=== PATIENT | male | born 1985 | race Caucasian/White ===

== ENCOUNTER → 2019-08-31 10:01 | Outpatient (BNVA) | payer MEDICARE, SELFPAY | PROVIDERS: Family Provider Internal Medicine; PCP Internal Medicine; Visit Provider Internal Medicine Rheumatology | DX: M45.8 Ankylosing spondylitis sacral and sacrococcygeal region (principal); M45.2 Ankylosing spondylitis of cervical region; I10 Essential (primary) hypertension; B02.29 Other postherpetic nervous system involvement; M79.2 Neuralgia and neuritis, unspecified; Z11.1 Encounter for screening for respiratory tuberculosis | CPT/HCPCS: 36415; 80053; 85007; 85027; 85651; 86141; 99214 ==

== ENCOUNTER → 2020-01-18 14:53 | Outpatient (BNVA) | payer MEDICARE, SELFPAY | PROVIDERS: Family Provider Internal Medicine; PCP Internal Medicine; Visit Provider Internal Medicine Rheumatology | DX: Z79.899 Other long term (current) drug therapy (principal) | CPT/HCPCS: 36415; 80076; 82565; 85025; 85651; 86140; 86480 ==

== ENCOUNTER → 2020-01-25 14:51 | Outpatient (BNVA) | payer MEDICARE, SELFPAY | PROVIDERS: Family Provider Internal Medicine; PCP Internal Medicine; Visit Provider Internal Medicine Rheumatology | DX: M45.2 Ankylosing spondylitis of cervical region (principal); M45.8 Ankylosing spondylitis sacral and sacrococcygeal region; Z79.899 Other long term (current) drug therapy; M80.88XD Other osteoporosis with current pathological fracture, vertebra(e), subsequent encounter for fracture with routine healing; L30.9 Dermatitis, unspecified | CPT/HCPCS: 99214 ==

== ENCOUNTER → 2020-05-02 09:06 | Outpatient (BNVA) | payer MEDICARE, SELFPAY | PROVIDERS: Family Provider Internal Medicine; PCP Internal Medicine; Visit Provider Internal Medicine Rheumatology | DX: Z79.899 Other long term (current) drug therapy (principal) | CPT/HCPCS: 36415; 80076; 82565; 85025; 85651; 86140 ==

== ENCOUNTER → 2020-05-07 14:55 | Outpatient (BNVA) | payer MEDICARE, SELFPAY | PROVIDERS: Family Provider Internal Medicine; PCP Internal Medicine; Visit Provider Internal Medicine Rheumatology | DX: M45.8 Ankylosing spondylitis sacral and sacrococcygeal region (principal); M45.2 Ankylosing spondylitis of cervical region; M80.88XD Other osteoporosis with current pathological fracture, vertebra(e), subsequent encounter for fracture with routine healing; Z79.899 Other long term (current) drug therapy; L30.9 Dermatitis, unspecified; Z79.1 Long term (current) use of non-steroidal anti-inflammatories (NSAID) | CPT/HCPCS: 99214 ==

== ENCOUNTER 2020-08-27 03:43 | Emergency (ER) | payer MEDICARE, SELFPAY ==
[2020-08-27 03:50] VITALS: BP 149/106; PULSE 87; RESP 17; TEMP 36.1; O2SAT 96; BMI 26.9
--- NOTE | 2020-08-27 04:18 | CTR_ITS ---
PROCEDURE INFORMATION: Exam: CT Head Without Contrast Exam date and time: 08/27/2020 4:24 AM Age: 35 years old Clinical indication: Dizziness; Additional info: Dizzy TECHNIQUE: Imaging protocol: Computed tomography of the head without contrast. Radiation optimization: All CT scans at this facility use at least one of these dose optimization techniques: automated exposure control; mA and/or kV adjustment per patient size (includes targeted exams where dose is matched to clinical indication); or iterative reconstruction. COMPARISON: CT head wo con* [id number] 07/19/2018 5:19 AM RADIATION DOSE METRICS: Total DLP (mGy-cm): 873.63 FINDINGS: Brain: Normal. No hemorrhage. Unremarkable white matter. No mass effect. Cerebral ventricles: No ventriculomegaly. Bones/joints: Unremarkable. No acute fracture. Paranasal sinuses: Visualized sinuses are unremarkable. No fluid levels. Mastoid air cells: Visualized mastoid air cells are well aerated. Soft tissues: Unremarkable. CT/CT head wo con* [id number] IMPRESSION: No acute intracranial abnormality. Radiation Dose CTDIVOL = (mGy): DLP = 873.63 (mGy-cm)
--- NOTE | 2020-08-27 04:18 | CTR_ITS ---
PROCEDURE INFORMATION: Exam: CT Cervical Spine Without Contrast Exam date and time: 08/27/2020 4:24 AM Age: 35 years old Clinical indication: Other: Dizzy; Additional info: Dizzy, HX of as TECHNIQUE: Imaging protocol: Computed tomography images of the cervical spine without contrast. Radiation optimization: All CT scans at this facility use at least one of these dose optimization techniques: automated exposure control; mA and/or kV adjustment per patient size (includes targeted exams where dose is matched to clinical indication); or iterative reconstruction. COMPARISON: CR XR cervical spine 4-5V [id number] 08/08/2020 12:50 PM RADIATION DOSE METRICS: Total DLP (mGy-cm): 692.1 FINDINGS: Bones/joints: No acute fracture. Normal alignment. Discs/Spinal canal/Neural foramina: There is partial osseous fusion of the C2, C3 and C4 bodies and posterior elements as well as the C5 and C6 bodies and posterior elements. Lungs: Lung apices are normal. Soft tissues: Unremarkable. CT/CT cervical spin wo con* [id number] IMPRESSION: No acute findings. Radiation Dose CTDIVOL = (mGy): DLP = 692.1 (mGy-cm)
--- NOTE | 2020-08-27 04:22 | ED_ITS ---
HPI - Dizziness General: Chief Complaint: Dizziness Stated Complaint: dizziness Time Seen by Provider: 08/27/20 03:58 History of Present Illness: HPI Narrative: 35-year-old male with history of ankylosing spondylitis. He presents with dizziness that started about 3 weeks ago. He says is progressively gotten worse. He has had mild hearing loss at one point, but feels like he is hearing okay now. He has had tinnitus or roaring in his ear at times but feels improved at this moment. He has seen his PCP as well as an ENT surgeon for this. He was first treated for a sinus infection with amoxicillin for 10 days and felt mildly improved transiently, but when symptoms return he was referred to ENT surgery. He was placed on prednisone at that point. He has been on this for 3 days, and notes that his symptoms have seemed to worsen is supposed to improve. This morning, he awoke with 3 different times with intense vertiginous symptoms, with a pulling sensation to the right. He has had some paresthesias bilaterally on and off. He denies significant headaches. MD elicited complaint: dizziness, vertigo and disequilibrium Pertinent past history: other Onset (ago): week(s) Timing: gradual onset Severity: moderate Description: sense of movement, room spinning and ongoing Context: other History of similar symptoms: No Exacerbating factors: movement/ambulation and change in body position Relieving factors: remaining still (to some degree) Associated symptoms: Reports nausea and tinnitus; Denies fevers/chills, headache(s), nasal congestion or vomiting Associated neuro symptoms: Reports facial numbness and numbness in extremities (transiently); Deny confusion, difficulty speaking, dysphagia, diplopia, extremity weakness or facial weakness Review of Systems Const: Denies: fever(s), chills or body aches Eyes: Denies: blind spots or photophobia ENMT: Reports: tinnitus; Denies: nasal congestion Resp: Denies: dyspnea or wheezing GI: Reports: nausea; Denies: vomiting or dysphagia Neuro: Reports: numbness in extremities (transiently); Denies: headache(s) or confusion PFS ED PFSH: Medical History (Updated 08/27/20 @ 06:06 by Isaak Cerna DO) Ankylosing spondylitis of cervical region Ankylosing spondylitis of sacral region High risk medication use Immunization counseling Osteoporotic compression fracture of spine Surgical History No history of previous surgery Family History Other Rheumatoid arthritis Stroke Denies family history of Systemic lupus erythematosus, unspecified Diabetes CAD (coronary artery disease) Chronic kidney disease (CKD) Lung disease Cancer Hypertension Social History Smoking and tobacco status: former smoker Quit status (tobacco): has quit using tobacco Second hand smoke exposure: No Smoking risk assessment/counseling performed?: No Alcohol intake: current Alcohol intake frequency: few times a week Desire information about alcohol rehabilitation?: No Counseling given: No Desire information about substance/drug rehabilitation?: No Counseling given: No Marital status: Single History of recent travel: No (08/31/2018, 03,24,20) Physical Exam Const: GENERAL APPEARANCE: well developed ORIENTATION/CONSCIOUSNESS: Yes oriented to person, Yes oriented to place and Yes oriented to time HENMT: COMMON NORMALS: normocephalic, external ears normal and Normal external nose present HEAD & SCALP: normocephalic FACE & SINUS: normal facial exam NOSE: Normal external nose present and No nasal discharge present EXTERNAL EAR: Yes external ears normal Eye: COMMON NORMALS: Equal, round and reactive pupils present, EOMs intact bilaterally and conjunctivae normal EYELID: eyelids normal CONJUNCTIVA: Yes conjunctivae normal PUPIL: Yes Equal, round and reactive pupils present Neck/C-Spine: COMMON NORMALS: no meningeal signs GENERAL: No tracheal deviation Chest: COMMONS NORMALS: normal inspection of the chest CHEST: No tenderness Resp: COMMON NORMALS: clear to auscultation bilaterally EFFORT & INSPECTION: No tachypneic, No respiratory distress, No retractions, No uses accessory muscles and No tracheal deviation AUSCULTATION: clear to auscultation bilaterally, no rhonchi, no wheezes and lung sounds not diminished Cardio: COMMON NORMALS: regular rate and regular rhythm RATE: regular rate RHYTHM: regular rhythm HEART SOUNDS: no murmurs PERIPHERAL PULSES: radial pulses present GI: INSPECTION: No abdominal distension AUSCULTATION: No Hyperactive bowel sounds present and No Hypoactive bowel sounds present PALPATION: No Guarding due to palpation present (GI) and No Rigid due to palpation PERCUSSION: no dullness to percussion and no tympanic to percussion Neuro: SENSORIUM/ORIENTATION: Yes oriented to person, Yes oriented to place and Yes oriented to time MENINGEAL SIGNS: Yes no meningeal signs CRANIAL NERVES: Yes CN normal except as noted COORDINATION/BALANCE: [id number]-[id number] te st normal, isyz-ie-[id number] test normal and No Romberg test positive SPEECH: speech normal MOTOR EXAM: Pronator motor function not present, No Tremors during motor activity present and No Abnormal muscle tone present COORDINATION: dzhvqp-[id number]-wwhl test normal and cmtg-wa-[id number] test normal Psych: COMMON NORMALS: mental status grossly normal Skin: COMMON NORMALS: no rashes or lesions noted GENERAL SKIN EXAM: no rashes or lesions noted Course Vital Signs: Vital signs: Vital Signs Temperature 97.0 F L 08/27/20 03:50 Pulse Rate 78 08/27/20 04:44 Respiratory Rate 18 08/27/20 04:44 Blood Pressure 130/89 08/27/20 04:44 Pulse Oximetry 97 08/27/20 04:44 MDM - Dizziness MDM Narrative: Medical decision making narrative: 35-year-old male with right- sided vertigo. He has some other symptoms including intermittent hearing loss and intermittent tinnitus. CT of the head is negative. CT of the cervical spine reveals partial osseous fusion of C2-3 and 4 as well as 5 and 6. His white blood cell count is elevated at 15.2, likely from steroids. His potassium is 3.4. The patient is on hydrochlorothiazide. I do not believe his hypokalemia is significant enough to cause his vertigo. Since he has failed steroids, would like to put him on benzodiazepines and possibly meclizine to control his symptoms until he can be further worked up by ENT. I am not sure an Neil maneuver at this point is going to help the patient either. Lab Data: Labs: Lab Results 08/27/20 08/27/20 Range/Units 04:20 04:20 WBC 15.2 H (4.0-10.0) 10^3/ uL RBC 5.22 (4.1-5.3) 10^6/u L Hgb 16.1 (11.7-16.6) g/dL Hct 45.4 (42.0-52.0) % MCV 87.0 (80-94) fL MCH 30.8 (28.0-34.0) pg MCHC 35.5 (30.0-36.0) g/dL RDW 11.9 L (12.1-15.1) % Plt Count 377 (130-400) 10^3/c mm MPV 9.4 (7.4-10.4) fL Neut % (Auto) 82.8 % Lymph % (Auto) 11.9 % [place] % (Auto) 4.9 % Eos % (Auto) 0.0 % Baso % (Auto) 0.1 % Neut # (Auto) 12.59 H (1.8-7.7) 10^3/u L Lymph # (Auto) 1.8 (0.8-4.8) 10^3/u L [place] # (Auto) 0.8 (0.2-0.9) 10^3/u L Eos # (Auto) 0.0 (0.0-0.8) 10^3/u L Baso # (Auto) 0.0 (0.0-0.1) 10^3/u L Nucleated RBC % (a uto) 0 % Nucleated RBCs # 0.0 /100WBC Sodium 133 L (136-145) mmol/L Potassium 3.4 L (3.5-5.1) mmol/L Chloride 94 L (98-107) mmol/L Carbon Dioxide 24 (22-29) mmol/L Anion Gap 18.4 (5-19) BUN 11 (6-20) mg/dL Creatinine 0.7 (0.7-1.2) mg/dL GFR Calculation 126.9 (90-130) mL/min Glucose 135 H (65-115) mg/dL Calculated Osmolal ity 277 L (285-295) mOsm/k g Calcium 9.3 (8.5-10.5) mg/dL Phosphorus 3.6 (2.5-4.5) mg/dL Magnesium 2.3 (1.7-2.3) mg/dL Total Bilirubin 1.1 (0.15-1.2) mg/dL AST 23 (0-40) U/L ALT 26 (0-41) U/L Alkaline Phosphata se 69 (40-130) IU/L C-Reactive Protein 3.2 (0.0-4.9) mg/L Total Protein 8.4 (6.6-8.7) g/dL Albumin 4.4 (3.5-5.2) g/dL Globulin 4.0 (1.3-4.6) g/dL Discharge Plan Discharge Patient Disposition: Home Clinical Impression: Acute vestibular neuronitis Qualifiers: Laterality: right Qualified Code(s): H81.21 - Vestibular neuronitis, right ear Condition: Stable Prescriptions: New Ativan 1 mg tablet 1 mg PO Q8H PRN (Reason: dizziness or vertigo) Qty: 20 RF: 0 meclizine 25 mg tablet 25 mg PO TID PRN (Reason: dizziness) Qty: 60 RF: 0 No Action hydrochlorothiazide 25 mg tablet 25 mg PO QAM RF: 0 alendronate [Fosamax] 70 mg tablet 70 mg PO .every 7 days Qty: 5 RF: 3 cholecalciferol (vitamin D3) 50 mcg (2,000 unit) tablet 2,000 unit PO DAILY Qty: 30 RF: 3 Cosentyx Pen 150 mg/mL pen injector 300 mg SUBCUT .qmonthly 90 Days Qty: 6 RF: 3 Discharge Orders: Discharge ED (Routine); Ordered 08/27/20 Ordered By: Isaak Cerna Referrals: Yuval Pressley MD [Physician] - 1-3 days Maksim Rosado DO [Primary Care Provider] - Discharge Diet: Advance as tolerated Discharge Activity: Limit activity as instructed Patient Instructions: Meniere Disease (ED), Vertigo (ED) Activity Restrictions/Additional Instructions: Return for significant weakness to one side, significant vision changes, language problems, altered mental status, worsening headache, other concerning symptoms you should not drive or operate heavy machinery while symptomatic with your condition, or on medication to treat the condition. Follow-up with ENT surgery as directed. Coding Level of Care Code ED Indirect Sales Representative for Traceyg Fwd Exam Comprehensive
[2020-08-27 04:33] LABS: Basophils % 0.1 %; Hematocrit 45.4 % (42.0-52.0); Hemoglobin 16.1 g/dL (11.7-16.6); Lymphocytes # 1.8 10^3/uL (0.8-4.8); Lymphocytes % 11.9 %; Mean Corpuscular HGB Conc 35.5 g/dL (30.0-36.0); Mean Corpuscular Hemoglobin 30.8 pg (28.0-34.0); Mean Platelet Volume 9.4 fL (7.4-10.4); Monocytes # 0.8 10^3/uL (0.2-0.9); Monocytes % 4.9 %; Neutrophils # 12.59 10^3/uL (1.8-7.7); Neutrophils % 82.8 %; Nucleated Red Blood Cells % 0 %; Platelet Count 377 10^3/cmm (130-400); Red Blood Count 5.22 10^6/uL (4.1-5.3); Red Cell Distribution Width 11.9 % (12.1-15.1); White Blood Count 15.2 10^3/uL (4.0-10.0)
[2020-08-27 04:44] VITALS: BP 130/89; PULSE 78; RESP 18; O2SAT 97
[2020-08-27 04:51] LABS: Alanine Aminotransferase 26 U/L (0-41); Albumin Level 4.4 g/dL (3.5-5.2); Alkaline Phosphatase 69 IU/L (40-130); Anion Gap 18.4 (5-19); Aspartate Amino Transferase 23 U/L (0-40); Blood Urea Nitrogen 11 mg/dL (6-20); C Reactive Protein 3.2 mg/L (0.0-4.9); Calcium 9.3 mg/dL (8.5-10.5); Carbon Dioxide 24 mmol/L (22-29); Chloride 94 mmol/L (98-107); Glomerular Filtration Rate 126.9 mL/min (90-130); Glucose 135 mg/dL (65-115); Magnesium 2.3 mg/dL (1.7-2.3); Osmolality Calculated 277 mOsm/kg (285-295); Phosphorus 3.6 mg/dL (2.5-4.5); Potassium 3.4 mmol/L (3.5-5.1); Sodium 133 mmol/L (136-145); Total Bilirubin 1.1 mg/dL (0.15-1.2); Total Protein 8.4 g/dL (6.6-8.7)
[2020-08-27 07:22] VITALS: BP 117/85; PULSE 74; RESP 18; O2SAT 98
== END 2020-08-27 07:15 | disposition home or self-care (01) ==
PROVIDERS: Emergency Provider Emergency Medicine; PCP Internal Medicine
DX: H81.21 Vestibular neuronitis, right ear (principal); Z87.891 Personal history of nicotine dependence
CPT/HCPCS: 12345; 70450; 72125; 80053; 83735; 84100; 85025; 86140; 99281; 99283

== ENCOUNTER 2020-08-31 13:32 | Outpatient (CLI) | payer MEDICARE, SELFPAY ==
--- NOTE | 2020-08-31 13:40 | MR_ITS ---
WS: [id number] MRI BRAIN WITH HIGH-RESOLUTION IMAGING THROUGH THE INTERNAL AUDITORY CANALS WITHOUT AND WITH CONTRAST HISTORY: DIZZINESS AND GIDDINESS COMPARISON: Noncontrast head CT 08/27/2020. TECHNIQUE: Multiplanar, multisequence imaging is performed through the brain. Additional 3 mm imaging performed in multiple planes through the internal auditory canal. Postcontrast imaging with 17 ml's of Prohance. No acute intracranial hemorrhage, midline shift, edema or mass effect. No significant white matter disease. No prior infarct. Ventricles and extra-axial spaces are normal. No inferior displacement of cerebellar tonsils. Clivus and pituitary gland are normal. Internal and external auditory canals: Unremarkable. Cranial nerves VII and VIII complexes: Unremarkable. No enhancement or mass. Cerebellopontine angles: Normal. Paranasal sinuses: Normal. Mastoid air cells: Normal. Calvarium and scalp: Normal. Visualized [place] of [place] and dural venous sinuses demonstrate no abnormality. MR/MR iac's wo/w con* [id number] IMPRESSION: Normal MRI IACs.
== END 2020-08-31 13:33 | disposition home or self-care (01) ==
LOC: RADSHAW 13:39
PROVIDERS: PCP Internal Medicine; Visit Provider Specialist
DX: R42 Dizziness and giddiness (principal)
CPT/HCPCS: 70553; A9579

== ENCOUNTER → 2020-09-03 09:17 | Outpatient (BNVA) | payer MEDICARE, SELFPAY | PROVIDERS: PCP Internal Medicine; Visit Provider Internal Medicine Rheumatology | DX: M45.8 Ankylosing spondylitis sacral and sacrococcygeal region (principal); M45.2 Ankylosing spondylitis of cervical region; M80.88XD Other osteoporosis with current pathological fracture, vertebra(e), subsequent encounter for fracture with routine healing; L30.9 Dermatitis, unspecified; Z79.899 Other long term (current) drug therapy; Z87.891 Personal history of nicotine dependence | CPT/HCPCS: 99214 ==

== ENCOUNTER → 2020-12-11 11:16 | Outpatient (BNVA) | payer MEDICARE, SELFPAY | PROVIDERS: PCP Internal Medicine; Visit Provider Internal Medicine Rheumatology | DX: M45.2 Ankylosing spondylitis of cervical region (principal); M45.8 Ankylosing spondylitis sacral and sacrococcygeal region; M80.88XD Other osteoporosis with current pathological fracture, vertebra(e), subsequent encounter for fracture with routine healing; R07.81 Pleurodynia; L30.9 Dermatitis, unspecified; Z79.899 Other long term (current) drug therapy; Z87.891 Personal history of nicotine dependence; M54.9 Dorsalgia, unspecified; R07.89 Other chest pain | CPT/HCPCS: 71110; 99214 ==

== ENCOUNTER 2020-12-11 12:18 | Outpatient (CLI) | payer MEDICARE, SELFPAY ==
--- NOTE | 2020-12-11 12:25 | XRR_ITS ---
PROCEDURE INFORMATION: Exam: XR Ribs Exam date and time: 12/11/2020 12:25 PM Age: 35 years old Clinical indication: Condition or disease; Other: Ankylosing spondylitis; Additional info: M45.9 - ankylosing spondylitis of unspecified sites in spine TECHNIQUE: Imaging protocol: XR of the ribs. Views: 3 views. Bilateral ribs. COMPARISON: CR Ribs Bilateral w PA CXR [id number] 04/21/2016 2:45 PM FINDINGS: Bones/joints: Normal. Soft tissues: Normal. XR/XR ribs 3V* [id number] IMPRESSION: The ribs appear normal.
== END 2020-12-11 12:19 | disposition home or self-care (01) ==
PROVIDERS: PCP Internal Medicine; Visit Provider Internal Medicine Rheumatology
DX: M45.9 Ankylosing spondylitis of unspecified sites in spine (principal); R07.81 Pleurodynia
CPT/HCPCS: 71110

== ENCOUNTER 2020-12-19 02:22 | Observation (INO) | payer MEDICARE, SELFPAY ==
[2020-12-19] VITALS (19 sets, daily range): BP systolic 97–161; BP diastolic 59–106; PULSE 48–94; RESP 13–18; TEMP 36.2–37.1; O2SAT 91–99; BMI 25.4
--- NOTE | 2020-12-19 02:47 | W.ED.ABDPA2 ---
HPI - Abdominal Pain General: Chief Complaint: Abdominal Pain Stated Complaint: upper abd pain Time Seen by Provider: 12/19/20 02:43 Source: patient Mode of arrival: ambulatory Limitations: no limitations History of Present Illness: HPI narrative: 35-year-old male states started having abdominal cramping and severe nausea that started at 7 PM after eating. He states he is also had some slight diarrhea. States pain is sharp in nature in the epigastric region and rates it a 6 out of 10. States never had pain like this before. Denies any radiation of his pain. Denies any fevers. Denies any known sick contacts. Associated Symptoms: Reports nausea and vomiting; Denies chills, dysuria and fever(s) Review of Systems Const: Denies: fever(s), chills, body aches or change in appetite Eyes: Denies: blurry vision or eye discomfort ENMT: Denies: throat pain or dental pain Card: Denies: chest pain Resp: Denies: dyspnea GI: Reports: abdominal pain, nausea and vomiting : Denies: dysuria Musc: Denies: neck pain or back pain Skin/Breast: Denies: rash Neuro: Denies: headache(s) Psych: Denies: depression Nash/Lymph: Denies: easy bruising All/Imm: Denies: urticaria PFSH ED PFSH: Medical History (Updated 12/19/20 @ 05:25 by Sarah Wilson MD) Ankylosing spondylitis of cervical region Ankylosing spondylitis of sacral region High risk medication use Immunization counseling Osteoporotic compression fracture of spine Surgical History No history of previous surgery Family History Other Rheumatoid arthritis Stroke Denies family history of Systemic lupus erythematosus, unspecified Diabetes CAD (coronary artery disease) Chronic kidney disease (CKD) Lung disease Cancer Hypertension Social History Smoking and tobacco status: former smoker Quit status (tobacco): has quit using tobacco Second hand smoke exposure: No Smoking risk assessment/counseling performed?: No Alcohol intake: current Alcohol intake frequency: few times a week Desire information about alcohol rehabilitation?: No Counseling given: No Desire information about substance/drug rehabilitation?: No Counseling given: No Marital status: Single History of recent travel: No (08/31/2018, 03,24,20) Physical Exam Const: COMMON NORMALS: no acute distress, patient oriented x3 and healthy appearing HENMT: COMMON NORMALS: normocephalic and atraumatic HEAD & SCALP: normocephalic and atraumatic Eye: COMMON NORMALS: Equal, round and reactive pupils present and EOMs intact bilaterally PUPIL: Yes Equal, round and reactive pupils present Neck/C-Spine: COMMON NORMALS: full ROM and supple Chest: COMMONS NORMALS: normal inspection of the chest and normal palpation of entire chest wall Resp: COMMON NORMALS: normal respiratory effort, No retractions, No use of accessory muscles and clear to auscultation bilaterally AUSCULTATION: clear to auscultation bilaterally Cardio: COMMON NORMALS: regular rate, regular rhythm and No murmurs present (Cardio) RATE: regular rate RHYTHM: regular rhythm GI: COMMON NORMALS: Normal to inspection, nondistended, normoactive bowel sounds present, Soft to palpation and no masses PALPATION: Yes Soft to palpation and Yes Tenderness to palpation present (GI) (Mild epigastric tenderness) Extremity: COMMON NORMALS: normal to inspection and full ROM Neuro: COMMON NORMALS: patient oriented x3, moves all extremities and no focal motor deficits Psych: COMMON NORMALS: mental status grossly normal, Normal thought process present and cooperative THOUGHT PROCESS: Normal thought process present Skin: COMMON NORMALS: no rashes or lesions noted and no wounds GENERAL SKIN EXAM: no rashes or lesions noted Course Vital Signs: Vital signs: Vital Signs Temperature 97.8 F 12/19/20 02:26 Pulse Rate 88 12/19/20 04:44 Respiratory Rate 18 12/19/20 04:44 Blood Pressure 152/90 12/19/20 03:09 Pulse Oximetry 95 12/19/20 04:44 MDM - Abdominal Pain MDM Narrative: Medical decision making narrative: Patient presents with right upper quadrant abdominal pain. Ultrasound here shows cholecystitis with thickened gallbladder wall. Patient has an elevated white count as well. I spoke to surgeon on-call Dr. José and will admit at this time. Lab Data: Labs: Lab Results 12/19/20 12/19/20 Range/Units 02:30 02:30 WBC 15.7 H (4.0-10.0) 10^3/ uL RBC 4.94 (4.1-5.3) 10^6/u L Hgb 14.8 (11.7-16.6) g/dL Hct 43.4 (42.0-52.0) % MCV 87.9 (80-94) fL MCH 30.0 (28.0-34.0) pg MCHC 34.1 (30.0-36.0) g/dL RDW 12.6 (12.1-15.1) % Plt Count 344 (130-400) 10^3/c mm MPV 9.6 (7.4-10.4) fL Neut % (Auto) 80.8 % Lymph % (Auto) 13.1 % [place] % (Auto) 4.9 % Eos % (Auto) 0.4 % Baso % (Auto) 0.4 % Neut # (Auto) 12.64 H (1.8-7.7) 10^3/u L Lymph # (Auto) 2.1 (0.8-4.8) 10^3/u L [place] # (Auto) 0.8 (0.2-0.9) 10^3/u L Eos # (Auto) 0.1 (0.0-0.8) 10^3/u L Baso # (Auto) 0.1 (0.0-0.1) 10^3/u L Nucleated RBC % (a uto) 0 % Nucleated RBCs # 0.0 /100WBC Sodium 136 (136-145) mmol/L Potassium 3.9 (3.5-5.1) mmol/L Chloride 100 (98-107) mmol/L Carbon Dioxide 28 (22-29) mmol/L Anion Gap 11.9 (5-19) BUN 9 (6-20) mg/dL Creatinine 0.6 L (0.7-1.2) mg/dL GFR Calculation 151.6 H (90-130) mL/min Glucose 107 (65-115) mg/dL Calculated Osmolal ity 281 L (285-295) mOsm/k g Calcium 8.2 L (8.5-10.5) mg/dL Total Bilirubin 0.6 (0.15-1.2) mg/dL AST 22 (0-40) U/L ALT 17 (0-41) U/L Alkaline Phosphata se 76 (40-130) IU/L Total Protein 7.5 (6.6-8.7) g/dL Albumin 4.2 (3.5-5.2) g/dL Globulin 3.3 (1.3-4.6) g/dL Lipase 22 (13-60) U/L Imaging Data ^: US: Attestation: I personally reviewed and interpreted this imaging study as follows: My impression: Multiple gallstones with thickened gallbladder wall up to [address] Abd/Pel: Radiologist's impression: [facility] [address] [place] [address] CT Scan Report Signed Patient: William Sousa Unit #: [id number] : [id number] Age/Sex: 35 / M ADM Date: 12/19/20 Loc: ER Room/Bed: Attending Dr: Ordering Provider/Ordering MD: Sarah Wilson MD Date of Service: 12/19/20 Procedure(s): CT abdomen pelvis w con* [id number] Accession Number(s): [id number] Report Number: [id number] PROCEDURE INFORMATION: Exam: CT Abdomen And Pelvis With Contrast Exam date and time: 12/19/2020 3:05 AM Age: 35 years old Clinical indication: Abdominal pain; Epigastric; Patient HX: Epigrastric/right sided abd pain starting last night. TECHNIQUE: Imaging protocol: Computed tomography of the abdomen and pelvis with contrast. Radiation optimization: All CT scans at this facility use at least one of these dose optimization techniques: automated exposure control; mA and/or kV adjustment per patient size (includes targeted exams where dose is matched to clinical indication); or iterative reconstruction. Contrast material: OMNI 300; Contrast volume: 95 ml; Contrast route: INTRAVENOUS (IV); COMPARISON: No relevant prior studies available. RADIATION DOSE METRICS: Total DLP (mGy-cm): 1831.12 FINDINGS: Lungs: The lung bases are clear. Liver: Unremarkable. Gallbladder and bile ducts: The gallbladder is abnormally distended, transverse diameter up to 5.5 cm. There appears to be some very subtle higher attenuation material in the dependent aspect of the gallbladder. This may represent biliary sludge, although small noncalcified gallstones might also have this appearance on CT. Ultrasound could be more specific/sensitive for detecting gallstones, if clinically needed. No definite pericholecystic fluid or inflammation at this time. No biliary tree dilation. Pancreas: Unremarkable. Spleen: The spleen appears mildly enlarged with a length of about 16 cm. No definite/significant focal abnormality or perisplenic fluid. Adrenal glands: Unremarkable. Kidneys and ureters: Suspect a very small left lower pole intrarenal calculus. No hydronephrosis of either kidney. No visible ureteral calculus. Stomach and bowel: There are no CT findings to strongly suggest diverticulitis. Appendix: The appendix is visualized and appears normal. Intraperitoneal space: No free air, ascites, or significant bowel distention. Vasculature: No evidence for abdominal aortic aneurysm. Lymph nodes: No retroperitoneal adenopathy. Urinary bladder: Unremarkable as visualized. Reproductive: Essentially unremarkable for age. Bones/joints: Prominent facet joint arthritis in the lower lumbar spine. There is least partial fusion of the SI joints. The Soft tissues: No significant acute finding. CT/CT abdomen pelvis w con* [id number] IMPRESSION: 1. Abnormally distended gallbladder. Possibility of biliary sludge versus noncalcified gallstones, details above. 2. Normal appendix. 3. No free air or significant bowel distention. 4. Mild splenomegaly, details above. Discharge Plan Discharge Patient Disposition: Admitted As Inpatient Clinical Impression: Acute cholecystitis Condition: Stable Coding Level of Care Code ED Plastic Boat Buffer for Radha Fwd Exam Comprehensive
[2020-12-19] MEDS: sodium chloride 0.9% 1,000 ML 999 ML IV (02:51)
[2020-12-19] MEDS: ondansetron 2 mg/ML SDV 2 mL 4 MG IVP ×2 (02:51→13:16)
[2020-12-19 02:52] LABS: Basophils # 0.1 10^3/uL (0.0-0.1); Basophils % 0.4 %; Eosinophils # 0.1 10^3/uL (0.0-0.8); Eosinophils % 0.4 %; Hematocrit 43.4 % (42.0-52.0); Hemoglobin 14.8 g/dL (11.7-16.6); Lymphocytes # 2.1 10^3/uL (0.8-4.8); Lymphocytes % 13.1 %; Mean Corpuscular HGB Conc 34.1 g/dL (30.0-36.0); Mean Corpuscular Volume 87.9 fL (80-94); Mean Platelet Volume 9.6 fL (7.4-10.4); Monocytes # 0.8 10^3/uL (0.2-0.9); Monocytes % 4.9 %; Neutrophils # 12.64 10^3/uL (1.8-7.7); Neutrophils % 80.8 %; Nucleated Red Blood Cells % 0 %; Platelet Count 344 10^3/cmm (130-400); Red Blood Count 4.94 10^6/uL (4.1-5.3); Red Cell Distribution Width 12.6 % (12.1-15.1); White Blood Count 15.7 10^3/uL (4.0-10.0)
[2020-12-19] MEDS: lidocaine 2% viscous 15 ML, aluminum-mag hydrox-simethicon 30 ML, sucralfate oral liq 1 GM PO (02:52)
--- NOTE | 2020-12-19 03:03 | CTR_ITS ---
PROCEDURE INFORMATION: Exam: CT Abdomen And Pelvis With Contrast Exam date and time: 12/19/2020 3:05 AM Age: 35 years old Clinical indication: Abdominal pain; Epigastric; Patient HX: Epigrastric/right sided abd pain starting last night. TECHNIQUE: Imaging protocol: Computed tomography of the abdomen and pelvis with contrast. Radiation optimization: All CT scans at this facility use at least one of these dose optimization techniques: automated exposure control; mA and/or kV adjustment per patient size (includes targeted exams where dose is matched to clinical indication); or iterative reconstruction. Contrast material: OMNI 300; Contrast volume: 95 ml; Contrast route: INTRAVENOUS (IV); COMPARISON: No relevant prior studies available. RADIATION DOSE METRICS: Total DLP (mGy-cm): 1831.12 FINDINGS: Lungs: The lung bases are clear. Liver: Unremarkable. Gallbladder and bile ducts: The gallbladder is abnormally distended, transverse diameter up to 5.5 cm. There appears to be some very subtle higher attenuation material in the dependent aspect of the gallbladder. This may represent biliary sludge, although small noncalcified gallstones might also have this appearance on CT. Ultrasound could be more specific/sensitive for detecting gallstones, if clinically needed. No definite pericholecystic fluid or inflammation at this time. No biliary tree dilation. Pancreas: Unremarkable. Spleen: The spleen appears mildly enlarged with a length of about 16 cm. No definite/significant focal abnormality or perisplenic fluid. Adrenal glands: Unremarkable. Kidneys and ureters: Suspect a very small left lower pole intrarenal calculus. No hydronephrosis of either kidney. No visible ureteral calculus. Stomach and bowel: There are no CT findings to strongly suggest diverticulitis. Appendix: The appendix is visualized and appears normal. Intraperitoneal space: No free air, ascites, or significant bowel distention. Vasculature: No evidence for abdominal aortic aneurysm. Lymph nodes: No retroperitoneal adenopathy. Urinary bladder: Unremarkable as visualized. Reproductive: Essentially unremarkable for age. Bones/joints: Prominent facet joint arthritis in the lower lumbar spine. There is least partial fusion of the SI joints. The Soft tissues: No significant acute finding. CT/CT abdomen pelvis w con* [id number] IMPRESSION: 1. Abnormally distended gallbladder. Possibility of biliary sludge versus noncalcified gallstones, details above. 2. Normal appendix. 3. No free air or significant bowel distention. 4. Mild splenomegaly, details above. 5. Other findings discussed above. Radiation Dose CTDIVOL = (mGy): DLP = 1831.12 (mGy-cm)
[2020-12-19 03:04] LABS: Alanine Aminotransferase 17 U/L (0-41); Albumin Level 4.2 g/dL (3.5-5.2); Alkaline Phosphatase 76 IU/L (40-130); Anion Gap 11.9 (5-19); Aspartate Amino Transferase 22 U/L (0-40); Blood Urea Nitrogen 9 mg/dL (6-20); Calcium 8.2 mg/dL (8.5-10.5); Carbon Dioxide 28 mmol/L (22-29); Chloride 100 mmol/L (98-107); Globulin 3.3 g/dL (1.3-4.6); Glomerular Filtration Rate 151.6 mL/min (90-130); Glucose 107 mg/dL (65-115); Lipase 22 U/L (13-60); Osmolality Calculated 281 mOsm/kg (285-295); Potassium 3.9 mmol/L (3.5-5.1); Sodium 136 mmol/L (136-145); Total Bilirubin 0.6 mg/dL (0.15-1.2); Total Protein 7.5 g/dL (6.6-8.7)
[2020-12-19] MEDS: morphine 4 mg/mL SDV 1 mL IVP (03:08)
[2020-12-19] MEDS: iohexol 300 mg/mL 100 mL Btl IV (03:17)
--- NOTE | 2020-12-19 04:14 | US_ITS ---
WS: [id number] RIGHT UPPER QUADRANT ULTRASOUND HISTORY: abd pain COMPARISON: CT 12/19/2020. Liver: 15.0 cm in length. Normal size liver. No bile duct dilatation or mass. Gallbladder: Mild gallbladder hydrops with numerous stones in the gallbladder. There is sludge and di ffuse gallbladder wall thickening. Gallbladder wall measures up to 8.6 mm. No pericholecystic fluid. CBD: 0.5 cm Pancreas: Not visualized. Right kidney: 10.9 cm in length. Normal size and echogenicity. No hydronephrosis or mass. Aorta and IVC: Unremarkable abdominal aorta and IVC. No ascites. US/US gall bladder [id number] IMPRESSION: 1. Findings of acute cholecystitis with numerous stones in the gallbladder lum en. 2. No bile duct dilatation.
[2020-12-19] MEDS: piperacillin-tazobactam 3.375 GM in sodium chloride 0.9% (plus) 50 ML IV (05:36)
--- NOTE | 2020-12-19 06:22 | PC.NURSE ---
Received report from Saroj in ER. Patient now to floor. No complaints at this time.
[2020-12-19 08:04] LABS: Add Urine Microscopic? NO; Charge for UA Resulting for Rev
[2020-12-19 08:09] LABS: Bilirubin Urine Neg (Negative); Blood Urine Neg (Negative); Glucose Urine UA Norm (Normal); Ketones Urine Negative (Negative); Leukocyte Esterase Urine Negative (Negative); Nitrate Urine Negative (Negative); Protein Urine Neg (Negative); Sulfosalicylic Acid Urine Negative (Negative); Urine Appearance Clear (CLEAR); Urine Color Straw (Yellow); Urobilinogen Urine Norm (Negative); pH Urine 8 (5-7)
[2020-12-19] MEDS: sodium chloride 0.9% 1,000 ML 100 ML IV (08:29)
--- NOTE | 2020-12-19 08:31 | PM.HP ---
Providers/Chief Complaint Admitting Physician: Alton José MD Primary Care Provider: Maksim Rosado DO Chief Complaint: upper abd pain History of Present Illness William Sousa is a 35 year old male who says he was in his normal state of health until around 5:30 PM last night when he developed epigastric and right upper quadrant discomfort after eating dinner. He was doubled over in pain. He developed some nausea but never vomited. He felt gassy and bloated with the episode. He denies any fevers but says he was having very small bouts of diarrhea with this. He came to the hospital and an ultrasound revealed evidence of acute calculus cholecystitis. He says he has had episodes like this over the past 4-5 years but last night was the worst. Normally, he has noticed after eating pasta, lettuce, etc. he will occasionally develop abdominal pain with the other above symptoms. Occasionally the pain will go around the right side to his back. He normally has some loose stool with the episodes, but they tend to only last for about 3 hours at a time and will go away. He has never seen any evidence of melena or hematochezia. He says that he has always realized that eating seemed to cause the episodes, but it was very inconsistent he and he would sometimes go months in between significant symptoms. Review of Systems General: Reports: 10 or more systems reviewed and unremarkable except in HPI and below Const: Denies: fever(s) or chills Resp: Denies: dyspnea GI: Reports: abdominal pain, nausea and diarrhea; Denies: vomiting Musc: Reports: neck pain (Ankylosing spondylitis) and back pain (Ankylosing spondylitis) Psych: Reports: anxiety Medications/Allergies Home Medications Medication Instructions Recorded Confirmed Last Taken Type hydrochlorothiazide 25 mg tablet 25 mg PO QAM 08/31/19 12/11/20 Unknown History cholecalciferol (vitamin D3) 50 2,000 unit PO DAILY #30 tab 05/07/20 12/11/20 Unknown Rx mcg (2,000 unit) tablet lorazepam 0.5 mg tablet 0.25 mg PO BID tab 09/03/20 12/11/20 Unknown History sertraline 25 mg tablet 25 mg PO DAILY 09/03/20 12/11/20 Unknown History alendronate 70 mg tablet 70 mg PO .every 7 days #15 tab 10/03/20 12/11/20 Unknown Rx secukinumab 150 mg/mL subcutaneous 300 mg SUBCUT .qmonthly 90 Days #6 12/11/20 12/11/20 Unknown Rx pen injector ml Allergies Allergy/AdvReac Type Severity Reaction Status Date / Time No Known Allergies Allergy Verified 12/19/20 02:29 PFSH Acute PFSH: Medical History (Updated 12/19/20 @ 09:07 by Alton José MD) Ankylosing spondylitis of cervical region Ankylosing spondylitis of sacral region Anxiety High risk medication use Immunization counseling Osteoporotic compression fracture of spine Skin cancer BCC Surgical History (Updated 12/19/20 @ 09:02 by Alton José MD) History of skin cancer BCC -- right side of face -- Moh's surgery Family History Other Rheumatoid arthritis Stroke Denies family history of Systemic lupus erythematosus, unspecified Diabetes CAD (coronary artery disease) Chronic kidney disease (CKD) Lung disease Cancer Hypertension Social History Smoking and tobacco status: former smoker Quit status (tobacco): has quit using tobacco Second hand smoke exposure: No Smoking risk assessment/counseling performed?: No Alcohol intake: current Alcohol intake frequency: few times a week Desire information about alcohol rehabilitation?: No Counseling given: No Desire information about substance/drug rehabilitation?: No Counseling given: No Marital status: Single History of recent travel: No (08/31/2018, 03,24,20) Vitals/I&O/Wt Last Vital Signs Temp 98.5 F 12/19/20 06:30 Pulse 94 12/19/20 06:30 Resp 16 12/19/20 06:30 BP 144/85 12/19/20 06:30 Pulse Ox 97 12/19/20 06:30 12/18/20 12/19/20 12/19/20 22:59 06:59 14:59 Intake Total 1050 / 1050 Balance 1050 / 1050 Weight last 48 hrs Weight 198 lb Physical Exam Narrative: EXAM NARRATIVE: The patient was encountered in his hospital room. He does not appear to be in any acute distress. The pupils are equal. No carotid bruits are heard. No neck masses are palpated. The lungs are clear anteriorly. The heart is regular. The abdomen reveals multiple tattoos but is soft. The patient has moderate tenderness in the right upper quadrant with a positive Roldan's sign. He has mild tenderness in the epigastrium and perhaps mild tenderness in the left upper quadrant with palpation and a deep inspiration. No masses are palpated. The extremities reveal no edema. Neurologically the patient appears to be grossly intact. Data : 12/19/20 02:30 12/19/20 02:30 Other Labs: Laboratory Tests 12/19/20 02:30 Total Bilirubin 0.6 AST 22 ALT 17 Alkaline Phosphatase 76 Lipase 22 US: Radiologist's impression: Gallbladder ultrasound 12/19/2020 IMPRESSION: 1. Findings of acute cholecystitis with numerous stones in the gallbladder lumen. 2. No bile duct dilatation. A&P Assessment and plan (1) Acute cholecystitis due to biliary calculus: The patient pretty clearly has acute calculus cholecystitis. It sounds like he has been dealing with symptoms of intermittent biliary colic for 4 or 5 years, although his episodes have not been consistent, and he has had months in between them at times. I discussed gallbladder disease and gallbladder surgery in detail. Risks of surgery including bleeding, infection, internal organ injury, slow healing given his immunologics, etc. were all gone over. The patient seems to understand and would like to proceed with a cholecystectomy. The patient has been n.p.o. since last night. I will make arrangements for a laparoscopic/possibly open cholecystectomy later this morning. Status: Acute Attestations Medical Necessity Statement*: Based on my medical assessment, presenting symptoms and consideration of the scope of surgical therapy, I expect this patient will require treatment in the hospital for a period of time spanning less than 2 midnights, and is therefore being placed in observation status. Coding Level of Care Code Acute Service Delivery Supervisor for [facility] Diagnoses Acute cholecystitis due to biliary calculus K80.00
--- NOTE | 2020-12-19 10:30 | P.ANESASSM_ITS ---
Pre-Anesthetic Assessment Pre-Anesthetic Assessment: Height/Weight: Height 1.88 m Weight 89.811 kg Temp Pulse Resp BP Pulse Ox 98.8 F 87 17 141/89 97 12/19/20 08:10 12/19/20 08:10 12/19/20 08:10 12/19/20 08:10 12/19/20 08:10 Preop Diagnosis: Cholecystitis Proposed Procedure: Operation Date: 12/19/20 11:30 Proposed Procedures p Laparoscopic Cholecystectomy(Not Applicable) - Alton José MD Familial anesthetic complications: None Was Beta Ramana taken within 24 hours: N/A Was Clonidine taken within 24 hours: N/A Last intake: Intake Last Liquid Date 12/19/20 Last Liquid Time 01:30 Last Solid Date 12/18/20 Last Solid Time 18:30 Social: Social History: No alcohol and No tobacco Exam: Pre-Anes Outpt Exam: alert, oriented x 3, clear to auscultation bilaterally and regular rate & rhythm Airway: Cervical ROM: WNL MP: 3 Dentition: Full Musc/skel: Comments: ankylosing spondylitis and osteopenia d/t remote prednisone use Anesthetic Plan: ASA status: 2 Anesthesia: General Risk of > 500 ml blood loss (7ml/kg in children): No Meds/Allergies Current Medications: Current Medications Generic Name Dose Route Start Last Admin Trade Name Freq PRN Reason Stop Dose Admin Sodium Chloride 1,000 mls @ 100 m ls/hr 12/19/20 06:29 12/19/20 08:29 Sodium Chloride 0.9% IV 100 mls/hr .Q10H FRAN Administration PFSH Anesthesia PFSH: Medical History (Updated 12/19/20 @ 09:07 by Alton José MD) Ankylosing spondylitis of cervical region Ankylosing spondylitis of sacral region Anxiety High risk medication use Immunization counseling Osteoporotic compression fracture of spine Skin cancer BCC Surgical History (Updated 12/19/20 @ 09:02 by Alton José MD) History of skin cancer BCC -- right side of face -- Moh's surgery Family History Other Rheumatoid arthritis Stroke Denies family history of Systemic lupus erythematosus, unspecified Diabetes CAD (coronary artery disease) Chronic kidney disease (CKD) Lung disease Cancer Hypertension Social History Smoking and tobacco status: former smoker Quit status (tobacco): has quit using tobacco Second hand smoke exposure: No Smoking risk assessment/counseling performed?: No Alcohol intake: current Alcohol intake frequency: few times a week Desire information about alcohol rehabilitation?: No Counseling given: No Desire information about substance/drug rehabilitation?: No Counseling given: No Marital status: Single History of recent travel: No (08/31/2018, 03,24,20) Data Anesthesia CBC & Chem 7: 12/19/20 02:30 12/19/20 02:30 Other Labs: Laboratory Results - last 48 hr 12/19/20 12/19/20 12/19/20 02:30 02:30 07:36 WBC 15.7 H RBC 4.94 Hgb 14.8 Hct 43.4 MCV 87.9 MCH 30.0 MCHC 34.1 RDW 12.6 Plt Count 344 MPV 9.6 Neut % (Auto) 80.8 Lymph % (Auto) 13.1 [place] % (Auto) 4.9 Eos % (Auto) 0.4 Baso % (Auto) 0.4 Neut # (Auto) 12.64 H Lymph # (Auto) 2.1 [place] # (Auto) 0.8 Eos # (Auto) 0.1 Baso # (Auto) 0.1 Nucleated RBC % (auto) 0 Nucleated RBCs # 0.0 Sodium 136 Potassium 3.9 Chloride 100 Carbon Dioxide 28 Anion Gap 11.9 BUN 9 Creatinine 0.6 L GFR Calculation 151.6 H Glucose 107 Calculated Osmolality 281 L Calcium 8.2 L Total Bilirubin 0.6 AST 22 ALT 17 Alkaline Phosphatase 76 Total Protein 7.5 Albumin 4.2 Globulin 3.3 Lipase 22 Urine Color Straw Urine Appearance Clear Urine pH 8 H Ur Specific [place] 1.010 Urine Protein Neg Urine Glucose (UA) Norm Urine Ketones Negative Urine Blood Neg Urine Nitrate Negative Urine Bilirubin Neg Prot Sulfosalicylic Acd Negative Urine Urobilinogen Norm Ur Leukocyte Esterase Negative Cardiac Studies: No Data to Display
--- NOTE | 2020-12-19 12:01 | P.OP_ITS ---
Operative Report Date of procedure: December 19, 2020 Pre-op Diagnosis: Acute calculus cholecystitis. Post-op diagnosis: same Procedure Done: Laparoscopic cholecystectomy. Specimens removed/disposition: Gallbladder. Surgeon: Alton José Anesthesia: General Estimated blood loss (mL): 5 Complications: None. Condition: stable Disposition: PACU Procedure: The patient was brought to the Operating Room and was placed in a supine position on the Operating Room table. General endotracheal anesthesia was induced. The abdomen was prepped and draped in a sterile fashion. A small vertical incision was carried out in the inferior aspect of the umbilicus. Blunt dissection was carried out down to the fascia, where a small umbilical hernia was identified. The fatty material in the defect was removed and then the opening was simply elongated somewhat inferiorly. A stay suture of 0 Vicryl was placed on either side of the midline. The underlying peritoneum was opened bluntly and the Dena port was placed directly into the peritoneal cavity and was held in place with the inflatable balloon. The peritoneal cavity was insufflated with carbon dioxide. The laparoscope was used to inspect the abdominal cavity. The gallbladder appeared somewhat distended. No other gross abnormalities were noted. A 5 millimeter port was placed in the epigastrium under direct vision. Two 5-m illimeter ports were placed on the right side of the abdomen under direct vision. The gallbladder was grasped and was elevated. The gallbladder was clearly edematous but was not distended to the point where the graspers could not hold onto it. Blunt dissection and hydrodissection were carried out in the infundibular region of the gallbladder and the cystic duct and cystic artery were identified. The gallbladder was partially removed from the liver bed using cautery and the spatula to confirm the anatomy before the structures were clipped and divided. The gallbladder was then removed from the liver bed using cautery and the spatula. The plane between the gallbladder and the liver bed was very edematous, typical of acute cholecystitis. After the gallbladder had been removed from the liver bed, the laparoscope was moved to the epigastric port and the gallbladder was removed from the peritoneal cavity through the umbilical port site after being placed in a laparoscopic bag. The fascial and skin incisions both had to be elongated to allow passage of the gallbladder with all of its contents. The stay sutures of Vicryl were tied to each other at the umbilicus. Some additional [id number] sutures of 0 Vicryl were placed, closing the enlarged defect so that it was airtight. The perihepatic spaces were irrigated with saline and the liver bed was reinspected. No ongoing problems were seen. The remaining ports were removed from the abdominal wall and the pneumoperitoneum was evacuated. All skin incisions were closed using inverted interrupted sutures of 4-0 Vicryl. Benzoin and Steri-Strips were placed over the incisions and Band-Aids followed. The patient was taken to the Recovery Area in stable condition postoperatively.
[2020-12-19] MEDS: D5-NS 0.45% + KCL 20 mEq 20 MEQ/1,000 ML BAG 100 MEQ IV (13:15)
[2020-12-19] MEDS: famotidine 20 mg/2 mL INJ IVP (13:15)
[2020-12-19] MEDS: heparin 5,000 unit/mL INJ 1 mL 5000 UNIT SUBCUT (13:16)
--- NOTE | 2020-12-19 13:26 | ANE.PACU2 ---
Inpatient post-anesthesia follow up: Airway intact: Yes Vital signs: Temperature 98.3 F Pulse Rate [Monito r] 73 Pulse Rate 58 Respiratory Rate 16 Blood Pressure [Ri ght Arm] 155/106 Blood Pressure 117/71 Pulse Oximetry 96 Oxygen Delivery Me thod Room Air Oxygen Flow Rate 6 Fraction of Inspir ed Oxygen Hydration adequate: Yes Nausea and vomiting: No Pain level: 1 Mental status: Baseline
--- NOTE | 2020-12-19 16:43 | P.DS_ITS ---
Discharge Providers Date of Admission: 12/19/20 05:26 Date of Discharge: December 19, 2020 Attending Provider at Admission: Alton José MD Attending Provider at Discharge: Alton José MD Primary Care Provider: Maksim Rosado DO Diagnoses at Discharge Discharge Diagnosis (1) Acute cholecystitis due to biliary calculus: Status: Acute Reason for Visit Reason for Visit: upper abd pain Hospital Course Hospital Course This is a 35-year-old white male who presented to the hospital with abdominal discomfort. Imaging and laboratory studies were consistent with acute calculus cholecystitis. He was taken to the operating room on 12/20/2019 one of the laparoscopic cholecystectomy was performed and was without immediate complication. Postoperatively, the patient was actually feeling very well. He said he felt better than he did before the surgery. All of his incisions look good and his vital signs had remained stable. He was anxious to go home. He was instructed with respect to wound care, activity, diet, follow-up, etc. Physical Exam Narrative: EXAM NARRATIVE: Vital signs are stable. The abdomen reveals hypoactive bowel sounds. He has the expected amount of tenderness. All of the laparoscopic incisions look good. Discharge Data Data Completed and Pending: Completed Studies During Hospitalization Category Date Time Status CT abdomen pelvis w con* [id number] Urge nt Cat Scan 12/19/20 03:03 Completed US gall bladder 7 [id number] Urgent Ultrasound 12/19/20 04:14 Completed Pending at discharge Category Date Time Status Pathology: Surgic al [PTH] Routine Pth 12/19/20 12:09 Received Labs from last 24 hours 12/19/20 12/19/20 12/19/20 07:36 02:30 02:30 WBC 15.7 H RBC 4.94 Hgb 14.8 Hct 43.4 MCV 87.9 MCH 30.0 MCHC 34.1 RDW 12.6 Plt Count 344 MPV 9.6 Neut % (Auto) 80.8 Lymph % (Auto) 13.1 [place] % (Auto) 4.9 Eos % (Auto) 0.4 Baso % (Auto) 0.4 Neut # (Auto) 12.64 H Lymph # (Auto) 2.1 [place] # (Auto) 0.8 Eos # (Auto) 0.1 Baso # (Auto) 0.1 Nucleated RBC % (a uto) 0 Nucleated RBCs # 0.0 Sodium 136 Potassium 3.9 Chloride 100 Carbon Dioxide 28 Anion Gap 11.9 BUN 9 Creatinine 0.6 L GFR Calculation 151.6 H Glucose 107 Calculated Osmolal ity 281 L Calcium 8.2 L Total Bilirubin 0.6 AST 22 ALT 17 Alkaline Phosphata se 76 Total Protein 7.5 Albumin 4.2 Globulin 3.3 Lipase 22 Urine Color Straw Urine Appearance Clear Urine pH 8 H Ur Specific Gravit y 1.010 Urine Protein Neg Urine Glucose (UA) Norm Urine Ketones Negative Urine Blood Neg Urine Nitrate Negative Urine Bilirubin Neg Prot Sulfosalicyli c Acd Negative Urine Urobilinogen Norm Ur Leukocyte Breanne ase Negative Vitals: Last Vital Signs Temp 98.1 F 12/19/20 15:59 Pulse 78 12/19/20 15:59 Resp 18 12/19/20 15:59 BP 136/86 12/19/20 15:59 Pulse Ox 95 12/19/20 15:59 Discharge Plan Discharge Patient Disposition: Home Condition: Stable Prescriptions: New hydrocodone-acetaminophen 5-325 mg tablet 1 - 2 tab PO Q5H PRN (Reason: pain) Qty: 30 RF: 0 Continued sertraline 25 mg tablet 25 mg PO DAILY@08 RF: 0 Cosentyx Pen 150 mg/mL pen injector 300 mg SUBCUT .qmonthly 90 Days Qty: 6 RF: 3 Tylenol Extra Strength 500 mg Tablet 1,000 mg PO PRN RF: 0 ibuprofen 200 mg Tablet 400 - 600 mg PO PRN RF: 0 Vitamin B-12 1 tab PO DAILY@08 RF: 0 biotin 1 cap PO DAILY@08 RF: 0 Fosamax 70 mg tablet 70 mg PO Q7D RF: 0 cholecalciferol (vitamin D3) 50 mcg (2,000 unit) tablet 2,000 unit PO DAILY@08 RF: 0 Discharge Orders: Discharge Order (Routine); Ordered 12/19/20 Ordered By: Alton José Referrals: Alton José MD [Physician] - 01/01/21 9:45 am (Nursing: Please call Dr. José's office ([phone]) and make an appointment for the patient to be seen in 10- 14 days.) Maksim Rosado DO [Primary Care Provider] - Discharge Diet: Advance as tolerated Discharge Activity: Limit activity as instructed Patient Instructions: Hydrocodone/Acetaminophen (By mouth), Laparoscopic Cholecystectomy (DC), Opioid Safety Activity Restrictions/Additional Instructions: 1. Discharge to home today. 2. Appointment to see Dr. José in 10-14 days. 3. Bandages / bandaids off tomorrow, leave Steri-Strip(s) on, may shower. 4. [place] 5/325 1-2 tablets by mouth every 5 hours as needed for pain. #30, no refills. No lifting over 20 pounds, no repetitive bending or twisting, no strenuous pushing / pulling or other heavy activity. Ambulate regularly. May go up and down steps if needed. Discharge Attestations Time Spent in Discharge Care*: less than 30 min Quality Metrics Clinical Quality Measures During this hospital stay, did patient experience: None Coding Level of Care Code Acute Chg FW DC note Diagnoses Acute cholecystitis due to biliary calculus K80.00
== END 2020-12-19 17:14 | disposition home or self-care (01) ==
LOC: ER 05:25 → MEDSURG 05:40
PROVIDERS: Admitting Provider Surgery; Emergency Provider Emergency Medicine; PCP Internal Medicine; Visit Provider Surgery
PROC: 0FT44ZZ Resection of Gallbladder, Percutaneous Endoscopic Approach (ICD-10-PCS; CPT 47562; principal; 2020-12-19 11:30)
DX: K80.10 Calculus of gallbladder with chronic cholecystitis without obstruction (principal); F41.9 Anxiety disorder, unspecified; Z87.891 Personal history of nicotine dependence
CPT/HCPCS: 47562; 12345; 74177; 76705; 80053; 81003; 83690; 85025; 88304; 96361; 96365; 96367; 96372; 96375; 99285; G0378; J0690; J1100; J1170; J1644; J1885; J2250; J2270; J2405; J2543; J2704; J3010; J3490; J7030; Q9967

== ENCOUNTER → 2021-05-21 13:08 | Outpatient (BNVA) | payer MEDICARE, SELFPAY | PROVIDERS: PCP Internal Medicine; Visit Provider Internal Medicine Rheumatology | DX: M45.2 Ankylosing spondylitis of cervical region (principal); M45.8 Ankylosing spondylitis sacral and sacrococcygeal region; M80.88XD Other osteoporosis with current pathological fracture, vertebra(e), subsequent encounter for fracture with routine healing; Z71.89 Other specified counseling; Z79.899 Other long term (current) drug therapy | CPT/HCPCS: 36415; 80076; 82565; 85025; 86140 ==

== ENCOUNTER → 2021-05-28 10:29 | Outpatient (BNVA) | payer MEDICARE, SELFPAY | PROVIDERS: PCP Internal Medicine; Visit Provider Internal Medicine Rheumatology | DX: M45.2 Ankylosing spondylitis of cervical region (principal); M45.8 Ankylosing spondylitis sacral and sacrococcygeal region; Z79.899 Other long term (current) drug therapy; M80.88XD Other osteoporosis with current pathological fracture, vertebra(e), subsequent encounter for fracture with routine healing; L30.9 Dermatitis, unspecified; Z71.89 Other specified counseling; Z87.891 Personal history of nicotine dependence | CPT/HCPCS: 99214 ==

== ENCOUNTER 2021-06-06 15:17 | Outpatient (CLI) | payer MEDICARE, SELFPAY ==
--- NOTE | 2021-06-06 15:45 | XR_ITS ---
WS: [id number] SCREENING DEXA SCAN [employer] CLINICAL INFORMATION: M80.88XD - Other osteoporosis with current pathological f... COMPARISON: April 26, 2019 FINDINGS: The L1-L4 bone mineral density measures 1.304. This corresponds to a T score score of 0.5 and Z score of 0.1. Left femoral neck bone mineral density measures 0.777 g/cm2. This corresponds to a T score of -2.2 an d Z score of -2.4. Right femoral neck bone mineral density measures 0.826 g/cm2. This corresponds to a T score -1.9of an d Z score of -2.0. Mean femoral neck bone mineral density measures 0.801 g/cm2. This corresponds to a T score of -2.1 an d Z score of -2.2. XR/XR DEXA axial skeleton* [id number] IMPRESSION: Osteopenia in the femoral necks. Calculated normal bone mineralization lumbar spine although this is likely spur iously elevated due to endplate sclerosis. FRAX score cannot be calculated due to patient age.
== END 2021-06-06 15:18 | disposition home or self-care (01) ==
PROVIDERS: PCP Internal Medicine; Visit Provider Internal Medicine Rheumatology
DX: M81.0 Age-related osteoporosis without current pathological fracture (principal)
CPT/HCPCS: 77080

== ENCOUNTER 2021-09-18 09:41 | Outpatient (CLI) | payer MEDICARE, SELFPAY ==
[2021-09-18 09:59] LABS: Basophils # 0.1 10^3/uL (0.0-0.1); Basophils % 0.7 %; Eosinophils # 0.1 10^3/uL (0.0-0.8); Eosinophils % 1.2 %; Hematocrit 43.5 % (42.0-52.0); Hemoglobin 14.7 g/dL (11.7-16.6); Lymphocytes # 1.8 10^3/uL (0.8-4.8); Lymphocytes % 21.6 %; Mean Corpuscular HGB Conc 33.8 g/dL (30.0-36.0); Mean Corpuscular Hemoglobin 30.6 pg (28.0-34.0); Mean Corpuscular Volume 90.4 fl (80-94); Mean Platelet Volume 9.4 fL (7.4-10.4); Monocytes # 0.5 10^3/uL (0.2-0.9); Neutrophils # 5.76 10^3/uL (1.8-7.7); Neutrophils % 70.3 %; Nucleated Red Blood Cells % 0 %; Platelet Count 335 10^3/cmm (130-400); Red Blood Count 4.81 10^6/uL (4.1-5.3); Red Cell Distribution Width 12.2 % (12.1-15.1); White Blood Count 8.2 10^3/uL (4.0-10.0)
[2021-09-18 10:18] LABS: Alanine Aminotransferase 11 U/L (0-41); Albumin Level 4.4 g/dL (3.5-5.2); Alkaline Phosphatase 65 IU/L (40-130); Aspartate Amino Transferase 16 U/L (0-40); C Reactive Protein 18.7 mg/L (0.0-4.9); Globulin 3.6 g/dL (1.3-4.6); Glomerular Filtration Rate 108.2 mL/min (90-130); Total Bilirubin 0.4 mg/dL (0.15-1.2)
== END 2021-09-18 09:42 | disposition home or self-care (01) ==
LOC: LAB 09:45
PROVIDERS: PCP Internal Medicine; Visit Provider Internal Medicine Rheumatology
DX: M45.2 Ankylosing spondylitis of cervical region (principal); M45.8 Ankylosing spondylitis sacral and sacrococcygeal region; Z79.899 Other long term (current) drug therapy
CPT/HCPCS: 36415; 80076; 82565; 85025; 86140

== ENCOUNTER → 2021-09-25 09:35 | Outpatient (BNVA) | payer MEDICARE, SELFPAY | PROVIDERS: PCP Internal Medicine; Visit Provider Internal Medicine Rheumatology | DX: M45.2 Ankylosing spondylitis of cervical region (principal); M45.8 Ankylosing spondylitis sacral and sacrococcygeal region; M85.80 Other specified disorders of bone density and structure, unspecified site; Z79.899 Other long term (current) drug therapy; L30.9 Dermatitis, unspecified; Z71.89 Other specified counseling | CPT/HCPCS: 99214 ==

== ENCOUNTER 2022-01-14 11:46 | Outpatient (CLI) | payer MEDICARE, SELFPAY ==
[2022-01-14 12:13] LABS: Basophils # 0.1 10^3/uL (0.0-0.1); Basophils % 0.6 %; Eosinophils # 0.2 10^3/uL (0.0-0.8); Hematocrit 46.3 % (42.0-52.0); Hemoglobin 15.6 g/dL (11.7-16.6); Lymphocytes # 2.3 10^3/uL (0.8-4.8); Lymphocytes % 21.8 %; Mean Corpuscular HGB Conc 33.7 g/dL (30.0-36.0); Mean Corpuscular Hemoglobin 30.4 pg (28.0-34.0); Mean Corpuscular Volume 90.1 fl (80-94); Mean Platelet Volume 9.3 fL (7.4-10.4); Monocytes # 0.6 10^3/uL (0.2-0.9); Monocytes % 5.5 %; Neutrophils # 7.28 10^3/uL (1.8-7.7); Neutrophils % 69.6 %; Nucleated Red Blood Cells % 0 %; Platelet Count 332 10^3/cmm (130-400); Red Blood Count 5.14 10^6/uL (4.1-5.3); Red Cell Distribution Width 12.5 % (12.1-15.1); White Blood Count 10.5 10^3/uL (4.0-10.0)
[2022-01-14 12:20] LABS: Erythrocyte Sedimentation Rate 10 mm/hr (0-10)
[2022-01-14 12:38] LABS: Alanine Aminotransferase 17 U/L (0-41); Albumin Level 4.9 g/dL (3.5-5.2); Alkaline Phosphatase 79 IU/L (40-130); Aspartate Amino Transferase 23 U/L (0-40); C Reactive Protein 15.7 mg/L (0.0-4.9); Globulin 4.2 g/dL (1.3-4.6); Glomerular Filtration Rate 125.5 mL/min (90-130); Total Bilirubin 0.8 mg/dL (0.15-1.2); Total Protein 9.1 g/dL (6.6-8.7)
[2022-01-16 14:27] LABS: Quantiferon Mitogen 9.22 IU/mL; Quantiferon Nil 0.01 IU/mL; Quantiferon TB Gold NEGATIVE (NEGATIVE)
== END 2022-01-14 11:47 | disposition home or self-care (01) ==
LOC: LAB 11:52
PROVIDERS: PCP Internal Medicine; Visit Provider Internal Medicine Rheumatology
DX: Z79.899 Other long term (current) drug therapy (principal)
CPT/HCPCS: 80076; 82565; 85025; 85651; 86140; 86480

== ENCOUNTER 2022-01-22 07:40 | Outpatient (CLI) | payer MEDICARE, SELFPAY ==
--- NOTE | 2022-01-22 | XR_ITS ---
WS: [id number] THORACIC SPINE TECHNIQUE: 3 views of the thoracic spine CLINICAL INFORMATION: THORACIC BACK PAIN COMPARISON: 2019 FINDINGS: Exam is somewhat limited due to technique and body habitus. Minimal thoracic curve. No acute appearing thoracic spine compression fractures. Disc space heights a nd vertebral body heights appear relatively well-preserved. No appreciable changes since . XR/XR thoracic spine 3V* [id number] IMPRESSION: 1. Minimal thoracic curve. 2. No acute thoracic spine findings. 3. Exam is somewhat limited and recommend further evaluation with CT or MRI if continued pain.
== END 2022-01-22 07:41 | disposition home or self-care (01) ==
LOC: RADOUTREAD 01-23 07:44
PROVIDERS: PCP Internal Medicine; Visit Provider Internal Medicine
DX: M54.6 Pain in thoracic spine (principal)
CPT/HCPCS: 72072

== ENCOUNTER → 2022-01-22 15:02 | Outpatient (BNVA) | payer MEDICARE, SELFPAY | PROVIDERS: PCP Internal Medicine; Visit Provider Internal Medicine Rheumatology | DX: M45.2 Ankylosing spondylitis of cervical region (principal); M45.8 Ankylosing spondylitis sacral and sacrococcygeal region; M80.88XD Other osteoporosis with current pathological fracture, vertebra(e), subsequent encounter for fracture with routine healing; Z79.899 Other long term (current) drug therapy; L30.9 Dermatitis, unspecified; Z71.89 Other specified counseling; M54.6 Pain in thoracic spine | CPT/HCPCS: 72072; 99214 ==

== ENCOUNTER 2022-07-01 12:01 | Outpatient (CLI) | payer MEDICARE, SELFPAY ==
[2022-07-01 12:57] LABS: Basophils # 0.1 10^3/uL (0.0-0.1); Basophils % 0.6 %; Eosinophils # 0.1 10^3/uL (0.0-0.8); Eosinophils % 0.8 %; Hematocrit 42.8 % (42.0-52.0); Hemoglobin 14.4 g/dL (11.7-16.6); Lymphocytes # 2.3 10^3/uL (0.8-4.8); Lymphocytes % 21.6 %; Mean Corpuscular HGB Conc 33.6 g/dL (30.0-36.0); Mean Corpuscular Hemoglobin 30.3 pg (28.0-34.0); Mean Corpuscular Volume 90.1 fl (80-94); Mean Platelet Volume 9.4 fL (7.4-10.4); Monocytes # 0.9 10^3/uL (0.2-0.9); Monocytes % 8.6 %; Neutrophils # 7.36 10^3/uL (1.8-7.7); Neutrophils % 67.9 %; Nucleated Red Blood Cells % 0 %; Platelet Count 320 10^3/cmm (130-400); Red Blood Count 4.75 10^6/uL (4.1-5.3); Red Cell Distribution Width 12.5 % (12.1-15.1); White Blood Count 10.8 10^3/uL (4.0-10.0)
[2022-07-01 13:20] LABS: Alanine Aminotransferase 20 U/L (0-41); Alkaline Phosphatase 78 U/L (40-130); Aspartate Amino Transferase 21 U/L (0-40); C Reactive Protein 48.7 mg/L (0.0-4.9); Globulin 4.4 g/dL (1.3-4.6); Glomerular Filtration Rate 107.6 mL/min (90-130); Total Bilirubin 0.8 mg/dL (0.15-1.2); Total Protein 8.4 g/dL (6.6-8.7)
== END 2022-07-01 12:02 | disposition home or self-care (01) ==
LOC: LAB 12:11
PROVIDERS: PCP Internal Medicine; Visit Provider Internal Medicine Rheumatology
DX: M45.8 Ankylosing spondylitis sacral and sacrococcygeal region (principal); Z79.899 Other long term (current) drug therapy
CPT/HCPCS: 80076; 82565; 85025; 86140

== ENCOUNTER → 2022-07-07 13:06 | Outpatient (BNVA) | payer MEDICARE, SELFPAY | PROVIDERS: PCP Internal Medicine; Visit Provider Internal Medicine Rheumatology | DX: M45.2 Ankylosing spondylitis of cervical region (principal); M45.8 Ankylosing spondylitis sacral and sacrococcygeal region; Z79.899 Other long term (current) drug therapy; M80.88XD Other osteoporosis with current pathological fracture, vertebra(e), subsequent encounter for fracture with routine healing; Z71.89 Other specified counseling; L30.9 Dermatitis, unspecified; M85.80 Other specified disorders of bone density and structure, unspecified site | CPT/HCPCS: 99214 ==

== ENCOUNTER → 2023-01-05 12:46 | Outpatient (BNVA) | payer MEDICARE, SELFPAY | PROVIDERS: PCP Internal Medicine; Visit Provider Internal Medicine Rheumatology | DX: M45.8 Ankylosing spondylitis sacral and sacrococcygeal region (principal); Z79.899 Other long term (current) drug therapy; M45.2 Ankylosing spondylitis of cervical region; M80.88XD Other osteoporosis with current pathological fracture, vertebra(e), subsequent encounter for fracture with routine healing; Z71.89 Other specified counseling; X58.XXXD Exposure to other specified factors, subsequent encounter | CPT/HCPCS: 99214 ==

== ENCOUNTER 2023-02-19 10:47 | Outpatient (RCR) | payer MEDICARE, SELFPAY | END 2023-02-20 23:59 | disposition home or self-care (01) | LOC: SPT 10:47 | PROVIDERS: PCP Internal Medicine; Visit Provider Internal Medicine Rheumatology | DX: M45.0 Ankylosing spondylitis of multiple sites in spine (principal) | CPT/HCPCS: 97162 ==

== ENCOUNTER 2023-03-05 15:20 | Outpatient (RCR) | payer MEDICARE, SELFPAY | END 2023-03-23 23:59 | disposition home or self-care (01) | LOC: SPT 15:20 | PROVIDERS: PCP Internal Medicine; Visit Provider Internal Medicine Rheumatology | DX: M45.0 Ankylosing spondylitis of multiple sites in spine (principal); M54.6 Pain in thoracic spine; R53.1 Weakness | CPT/HCPCS: 97110 ==

== ENCOUNTER 2023-03-24 06:00 | Outpatient (RCR) | payer MEDICARE, SELFPAY | END 2023-04-07 23:59 | disposition home or self-care (01) | LOC: SPT 06:00 | PROVIDERS: PCP Internal Medicine; Visit Provider Internal Medicine Rheumatology | DX: M45.0 Ankylosing spondylitis of multiple sites in spine (principal) | CPT/HCPCS: 97110 ==

== ENCOUNTER 2023-04-06 15:15 | Outpatient (CLI) | payer MEDICARE, SELFPAY ==
--- NOTE | 2023-04-06 15:20 | CT_ITS ---
WS: [id number] CT ABDOMEN AND PELVIS WITH CONTRAST HISTORY: NONINFECTIVE GASTROENTERITIS COLITIS TECHNIQUE: Imaging performed of the abdomen and pelvis with IV contrast. Single phase imaging of the abdomen. Coronal and sagittal reformats are submitted. All CT scans at [facility] use at ana st one of these dose optimization techniques: automated exposure control; mA and/or kV adjustment per patient size (includes targeted exams where dose is matched to clinical indication); or iterative re construction. IV CONTRAST: Omnipaque 350; 100 mL IV. Oral contrast: Yes. DLP: 619.89 mGy.cm COMPARISON: 12/19/2020 Lower thorax: Lung bases are clear. Heart is normal size. No hiatal hernia. Liver/biliary system: Normal size with no intrahepatic dilatation. Gallbladder: Cholecystectomy. Pancreas: Normal size pancreas and pancreatic duct. No adjacent inflammation. Spleen: Top normal size at 13.2 cm in length. Similar to the prior examination. Adrenal glands: Normal. Right kidney: Normal. Left kidney: Normal size kidney. No mass or obstruction. There is a nonobstructing 3 mm calcification lower pole. Aorta: Mild atherosclerosis with no aneurysm. Lymphadenopathy: None. Free fluid: None. GI tract: Normal stomach. No small bowel obstruction. Normal appendix. Very minimal sigmoid wall thic [place] with a few adjacent diverticula. No adjacent inflammation. There is no submucosal edema or per icolonic inflammation. Abdominal wall: Unremarkable abdominal wall. No hernia. Pelvis: No free fluid or adenopathy within the pelvis. Minimally distended urinary bladder. Bones: Increase in the lumbar lordosis. Mild CAM deformity of the hips. Partial fusion across the SI joints. Similar to the prior study. IMPRESSION: 1. No acute inflammatory infectious changes involving the GI tract. 2. Mild thickening of the sigmoid with a few adjacent diverticula. No acute diverticulitis. No obstr uctive pattern. 3. Prior cholecystectomy. 4. Partial fusion SI joints. Similar to the prior study.
[2023-04-06] MEDS: iohexol 350 mg/mL 500 mL Btl (per mL) PO (16:28)
[2023-04-06] MEDS: iohexol 350 mg/mL 500 mL Btl (per mL) IV (16:38)
== END 2023-04-06 15:16 | disposition home or self-care (01) ==
LOC: RAD 15:18
PROVIDERS: PCP Internal Medicine; Visit Provider Surgery
DX: K52.9 Noninfective gastroenteritis and colitis, unspecified (principal); R10.9 Unspecified abdominal pain; R14.0 Abdominal distension (gaseous); K57.30 Diverticulosis of large intestine without perforation or abscess without bleeding; M43.28 Fusion of spine, sacral and sacrococcygeal region; Z90.49 Acquired absence of other specified parts of digestive tract
CPT/HCPCS: 74177; Q9967

== ENCOUNTER → 2023-07-21 09:08 | Outpatient (BNVA) | payer MEDICARE, SELFPAY | PROVIDERS: PCP Internal Medicine; Visit Provider Internal Medicine Rheumatology | DX: Z79.899 Other long term (current) drug therapy (principal); M45.8 Ankylosing spondylitis sacral and sacrococcygeal region; M45.2 Ankylosing spondylitis of cervical region; M80.88XD Other osteoporosis with current pathological fracture, vertebra(e), subsequent encounter for fracture with routine healing; Z71.89 Other specified counseling | CPT/HCPCS: 99214 ==

== ENCOUNTER → 2024-01-19 09:18 | Outpatient (BNVA) | payer MEDICARE, SELFPAY | PROVIDERS: PCP Internal Medicine; Visit Provider Internal Medicine Rheumatology | DX: M45.2 Ankylosing spondylitis of cervical region (principal); M45.8 Ankylosing spondylitis sacral and sacrococcygeal region; Z79.899 Other long term (current) drug therapy; M80.88XD Other osteoporosis with current pathological fracture, vertebra(e), subsequent encounter for fracture with routine healing; Z71.89 Other specified counseling | CPT/HCPCS: 99214 ==